=== PATIENT | female | born 1960 | race Caucasian/White ===

== ENCOUNTER 2021-06-30 11:18 | Emergency (ER) | payer MEDICARE, BC ==
[2021-06-30] MEDS ORDERED: MORPHINE SULFATE 4 MG/ML SYRINGE IVP STA (11:25)
--- NOTE | 2021-06-30 12:48 | XR ---
EXAMINATION TYPE: XR tibia fibula LT DATE OF EXAM: 06/30/2021 COMPARISON: None HISTORY: Pain TECHNIQUE: 2 view left tibia and fibula FINDINGS: There are transverse fractures through the distal metaphyseal tibia and fibula. There is so me slight angulation present. A longitudinal fracture fragment extends into the distal diaphyseal tib ia. Incidental note is made of a mid diaphyseal nondisplaced fibular fracture. IMPRESSION: 1. Distal metaphyseal tibia and fibular fractures. 2. The tibial fracture is comminuted with a longitudinal extension into the distal diaphyseal tibia. 3. Note is made of a mid diaphyseal nondisplaced fibular fracture.
[2021-06-30] MEDS ORDERED: Acetaminophen-Codeine 300-30mg TAB PO STA (13:16)
--- NOTE | 2021-06-30 13:17 | ED ---
Lower Extremity Injury HPI - General Chief Complaint: Extremity Injury, Lower Stated Complaint: Lt Ankle Injury Time Seen by Provider: 06/30/21 11:20 Source: patient, EMS, RN notes reviewed Mode of arrival: EMS - History of Present Illness Initial Comments: Patient is a 61-year-old female that presents to emergency department complaining of left lower leg pain. She notes that she has a history of MS is wheelchair-bound and she notes that she slipped out of her wheelchair today when she injured her left lower leg. She notes that she thinks she sprained her left ankle. She denied any other issues or complaints. She notes she does have a history of decreased sensation in her bilateral feet that is chronic. She denied chest pain shortness of breath headache nausea vomiting diarrhea constipation fever fatigue chills. - Related Data Allergies Allergy/AdvReac Type Severity Reaction Status Date / Time No Known Allergies Allergy Verified 06/30/21 11:25 Review of Systems ROS Statement: Those systems with pertinent positive or pertinent negative responses have been documented in the HPI. ROS Other: All systems not noted in ROS Statement are negative. Past Medical History Additional Past Medical History / Comment(s): MS History of Any Multi-Drug Resistant Organisms: None Reported Past Surgical History: Orthopedic Surgery Smoking Status: Former smoker Past Alcohol Use History: None Reported Past Drug Use History: None Reported General Exam General appearance: alert, in no apparent distress Head exam: Present: atraumatic, normocephalic, normal inspection Eye exam: Present: normal appearance, PERRL, EOMI. Absent: scleral icterus, conjunctival injection, periorbital swelling Neck exam: Present: normal inspection Respiratory exam: Present: normal lung sounds bilaterally. Absent: respiratory distress, wheezes, rales, rhonchi, stridor Cardiovascular Exam: Present: regular rate, normal rhythm, normal heart sounds. Absent: systolic murmur, diastolic murmur, rubs, gallop, clicks Left Lower Leg exam: Present: tenderness ([place] to ankle), swelling. Absent: normal inspection, full ROM, abrasion, laceration, ecchymosis, deformity, crepitus, dislocation, erythema, palpable cord Neurological exam: Present: alert, oriented X3 Psychiatric exam: Present: normal affect, normal mood Skin exam: Present: warm, dry, intact, normal color. Absent: rash Course Vital Signs 06/30/21 11:20 Temperature 97.9 F Pulse Rate 68 Respiratory 19 Rate Blood Pressure 139/86 O2 Sat by Pulse 97 Oximetry Procedures - Orthopedic Splinting/Casting Injury #1 Side: left Lower Extremity Injury Location: short leg Lower Extremity Immobilizer: stirrup splint, Po wrap, synthetic pre-padded splint Medical Decision Making - Medical Decision Making 61-year-old female with left lower leg injury. X-ray of the left tib-fib, 4 mg of morphine ordered. X-ray shows a distal tib-fib and admitted fibular shaft fracture. Case discussed with Dr. Powell, patient discharge home. Dr. Neal was consulted and states that he will see her outpatient in office either tomorrow or Monday. - Radiology Data Radiology results: report reviewed, image reviewed X-ray left tib-fib: Distal metaphyseal tibia and fibular fractures. The tibial fracture is comminuted with a longitudinal extension of the distal diaphyseal tibia. Note is made of a mid diaphyseal nondisplaced fibular fracture. Disposition Clinical Impression: Closed fracture of distal end of left fibula and tibia, Left fibular fracture Disposition: HOME SELF-CARE Condition: Stable Instructions (If sedation given, give patient instructions): Leg Fracture (ED) Additional Instructions: Please return to the Emergency Department if symptoms worsen or any other concerns. Follow-up with orthopedics tomorrow or Monday. Follow-up with primary care as needed. Take pain medications as prescribed. Is patient prescribed a controlled substance at d/c from ED?: No Referrals: Vicky Beckwith MD [Primary Care Provider] - 1-2 days Rodriguez Neal MD [STAFF PHYSICIAN] - 1-2 days Time of Disposition: 13:16
[2021-06-30] MEDS ORDERED: ACET/COD 300 MG/30 MG STARTER PACK 6 TAB BTL PO STA (13:33)
[2021-06-30 15:26] VITALS: BP 131/90; PULSE 65; RESP 18; TEMP 98
== END 2021-06-30 15:26 | disposition home or self-care (01) ==
LOC: EC 11:18
DX: S89.192A Other physeal fracture of lower end of left tibia, initial encounter for closed fracture (principal); S89.392A Other physeal fracture of lower end of left fibula, initial encounter for closed fracture; Z87.891 Personal history of nicotine dependence; W05.0XXA Fall from non-moving wheelchair, initial encounter
CPT/HCPCS: 73590; 99283; 96374; 29515; J2270